=== PATIENT | female | born 1995 | race Caucasian/White ===

== ENCOUNTER 2017-09-05 16:10 | Emergency (ER) | payer OTHER ==
[~2017-09-05] VITALS: Ht 165.1 cm; Wt 56.8 kg
[2017-09-05 16:16] VITALS: BP 136/79; PULSE 100; TEMP 98.8
[2017-09-05] MEDS ORDERED: BIRTH CONTROL (16:19)
== END 2017-09-05 17:19 | disposition home or self-care (01) ==
LOC: COL.ER 16:10
DX: S80.02XA Contusion of left knee, initial encounter (principal); R20.2 Paresthesia of skin; X58.XXXA Exposure to other specified factors, initial encounter